=== PATIENT | female | born 2000 | race Caucasian/White ===

== ENCOUNTER → 2022-12-10 | Outpatient (CLI) | payer OTHER ==
[~2022-12-10] MED LIST: BENADRYL25 MG PO
== END | disposition home or self-care (01) ==
LOC: US 01:36
PROVIDERS: ATTEND Nurse Practitioner Women's Health
DX: R22.31 Localized swelling, mass and lump, right upper limb (principal)

== ENCOUNTER → 2023-10-27 | Outpatient (CLI) | payer BC | END | disposition home or self-care (01) | LOC: US 13:30 | PROVIDERS: ATTEND Internal Medicine | DX: R59.0 Localized enlarged lymph nodes (principal) ==